=== PATIENT | male | born 1945 | race Caucasian/White ===

== ENCOUNTER → 2017-03-01 | Outpatient (CLI) | payer MEDICARE, BC | END | disposition home or self-care (01) | LOC: PCVCCLINIC 13:57 | PROVIDERS: ATTEND Internal Medicine | DX: I10 Essential (primary) hypertension (principal); E78.4 Other hyperlipidemia; E11.9 Type 2 diabetes mellitus without complications; R00.1 Bradycardia, unspecified; G47.33 Obstructive sleep apnea (adult) (pediatric); R07.9 Chest pain, unspecified; Z87.891 Personal history of nicotine dependence; Z88.0 Allergy status to penicillin; Z88.8 Allergy status to other drugs, medicaments and biological substances; Z79.84 Long term (current) use of oral hypoglycemic drugs; Z79.899 Other long term (current) drug therapy | CPT/HCPCS: 80061; 93005; G0463 ==

== ENCOUNTER → 2017-03-08 | Outpatient (CLI) | payer MEDICARE, BC | END | disposition home or self-care (01) | LOC: PCVCIMAG 09:31 | PROVIDERS: ATTEND Internal Medicine | DX: R07.9 Chest pain, unspecified (principal); I10 Essential (primary) hypertension; E11.9 Type 2 diabetes mellitus without complications | CPT/HCPCS: 78452; 93017; A9500 ==

== ENCOUNTER → 2019-01-15 | Outpatient (CLI) | payer MEDICARE, BC | END | disposition home or self-care (01) | LOC: PCVCCLINIC 15:03 | PROVIDERS: ATTEND Internal Medicine | DX: Z01.812 Encounter for preprocedural laboratory examination (principal); R07.9 Chest pain, unspecified; R93.1 Abnormal findings on diagnostic imaging of heart and coronary circulation; E11.9 Type 2 diabetes mellitus without complications; E78.2 Mixed hyperlipidemia; Z79.899 Other long term (current) drug therapy; Z87.891 Personal history of nicotine dependence | CPT/HCPCS: 36415; 93005; G0463 ==

== ENCOUNTER → 2019-01-16 | Outpatient (CLI) | payer MEDICARE ==
--- NOTE | 2019-01-16 13:36 | PCVCIMAG ---
APPROVED REPORT Study performed: 01/16/2019 09:11:23 EXAM: Comprehensive 2D, Doppler, and color-flow Echocardiogram Patient Location: Echo lab Room #: 3Status: routine BSA: 2.02 HR: 49 bpmBP: 142/58 mmHg Rhythm: Bradycardia Other Information Study Quality: Good Risk Factors: Cardiac Risk Factors: HTN, Hyperlipidemia, DM, Smoking hx,Cor Ca+ score >1000 Indications Diabetes Fatigue Chest Pain Hypertension/HDD 2D Dimensions IVSd: 9.99 (7-11mm)LVOT Diam: 20.77 (18-24mm) LVDd: 53.95 mm PWd: 7.23 (7-11mm)Ascending Ao: 30.48 (22-36mm) LVDs: 25.15 (25-40mm) Left Atrium: 37.76 (27-40mm) Aortic Root: 22.33 mm LV Single Plane 4CH: 56.56 % LV Single Plane 2CH: 71.14 % Biplane EF: 65.3 % Volumes Left Atrial Volume (Systole) Single Plane 4CH: 66.10 mLSingle Plane 2CH: 40.92 mL Biplane LA Volume: 55.00 mLLA ESV Index: 27.00 mL/m2 Aortic Valve AoV Peak Otto.: 1.40 m/s AO Peak Gr.: 7.84 mmHgLVOT Max P.05 mmHg LVOT Max V: 1.01 m/s OMAR Vmax: 2.43 cm2 Mitral Valve E/A Ratio: 0.7 MV Decel. Time: 175.10 ms MV E Max Otto.: 0.55 m/s MV A Otto.: 0.83 m/s IVRT: 119.95 ms TDI E/Lateral E': 5.00E/Medial E': 5.50 Medial E' Otto.: 0.10 m/s Lateral E' Otto.: 0.11 m/s Pulmonary Valve PV Peak Otto.: 0.83 m/sPV Peak Gr.: 2.77 mmHg Pulmonary Vein P Vein S: 0.80 m/sP Vein A: 0.28 m/s P Vein D: 0.46 m/sP Vein A Dur.: 133.8 msec P Vein S/D Ratio: 1.74 Tricuspid Valve TR Peak Otto.: 2.00 m/s TR Peak Gr.: 15.98 mmHg TV Vmax: 0.58 m/sPA Pressure: 23.00 mmHg Left Ventricle The left ventricle is normal size. There is normal LV segmental wall motion. There is normal left ventricular wall thickness. Left ventricular systolic function is normal. The left ventricular ejection fraction is within the normal range. LVEF is 60-65%. Grade I - abnormal relaxation pattern. Right Ventricle The right ventricle is normal size. The right ventricular systolic function is normal. Atria The left atrium size is normal. The right atrium size is normal. Aortic Valve Aortic valve is trileaflet. The aortic valve is normal in structure and function. No aortic regurgitation is present. There is no aortic valvular stenosis. Mitral Valve Mild mitral annular calcification. The mitral valve is normal in structure and function. Trace to mild mitral regurgitation. No evidence of mitral valve stenosis. Tricuspid Valve The tricuspid valve is normal in structure. There is trivial tricuspid valve regurgitation noted. No apparent pulmonary hypertension. Pulmonic Valve The pulmonary valve is normal in structure. There is no pulmonic valvular regurgitation. Great Vessels The aortic root is normal in size. The ascending aorta is normal in size. Aortic arch is normal in caliber. IVC is normal in size and collapses >50% with inspiration. Pericardium There is no pericardial effusion. There is no pleural effusion. <Conclusion> The left ventricle is normal size. LVEF is 60-65%. Aortic valve is trileaflet. The aortic valve is normal in structure and function. Mild mitral annular calcification. The mitral valve is normal in structure and function. Trace to mild mitral regurgitation. The tricuspid valve is normal in structure. There is trivial tricuspid valve regurgitation noted. No apparent pulmonary hypertension. The pulmonary valve is normal in structure. There is no pericardial effusion.
== END | disposition home or self-care (01) ==
LOC: PCVCIMAG 09:28
PROVIDERS: ATTEND Internal Medicine
DX: I08.1 Rheumatic disorders of both mitral and tricuspid valves (principal); R07.9 Chest pain, unspecified; R53.83 Other fatigue; E11.9 Type 2 diabetes mellitus without complications; I10 Essential (primary) hypertension; E78.5 Hyperlipidemia, unspecified; G47.33 Obstructive sleep apnea (adult) (pediatric); R06.09 Other forms of dyspnea; Z99.89 Dependence on other enabling machines and devices; Z87.891 Personal history of nicotine dependence
CPT/HCPCS: 93306

== ENCOUNTER → 2019-02-16 | Outpatient (CLI) | payer MEDICARE ==
--- NOTE | 2019-02-16 13:22 | RAD ---
Chest, 2 views, 02/16/2019: HISTORY: Postop CABG There has been a previous median sternotomy. The heart size is normal. No pulmonary infiltrate is seen. There is no evidence of pleural fluid or pneumothorax. Minimal spurring is present in the spine. IMPRESSION: No acute cardiopulmonary abnormality is detected. Electronically signed by: Paulo Humphries MD (02/16/2019 1:19 PM) [facility]
== END | disposition home or self-care (01) ==
LOC: RAD 11:56
PROVIDERS: ATTEND Thoracic Surgery (Cardiothoracic Vascular Surgery)
DX: M46.00 Spinal enthesopathy, site unspecified (principal); Z95.1 Presence of aortocoronary bypass graft
CPT/HCPCS: 71046

== ENCOUNTER → 2019-02-22 | Outpatient (CLI) | payer MEDICARE | END | disposition home or self-care (01) | LOC: PCVCCLINIC 16:00 | PROVIDERS: ATTEND Internal Medicine | DX: I25.118 Atherosclerotic heart disease of native coronary artery with other forms of angina pectoris (principal); E78.5 Hyperlipidemia, unspecified; I10 Essential (primary) hypertension; E11.9 Type 2 diabetes mellitus without complications; Z88.0 Allergy status to penicillin | CPT/HCPCS: G0463 ==